=== PATIENT | male | born 1990 | race Two or more races ===

== ENCOUNTER 2023-09-08 20:10 | Emergency (ER) | payer OTHER ==
[~2023-09-08] VITALS: Ht 170.2 cm; Wt 69.9 kg
[2023-09-08] MEDS ORDERED: IBUPROFEN 400 MG TABLET PO ONE (23:00)
[2023-09-08] MEDS ORDERED: IBUPROFEN 400 MG TABLET ONE (23:04)
[2023-09-08] MEDS ORDERED: ACETAMINOPHEN ES 500 MG TABLET ONE (23:09)
[2023-09-08] MEDS ORDERED: ACETAMINOPHEN ES 500 MG TABLET PO ONE (23:30)
[2023-09-08] MEDS ORDERED: TYL2T PO (23:53)
[2023-09-08] MEDS ORDERED: IBUP-1957 PO (23:53)
[2023-09-09] VITALS: BP 139/90; TEMP 98.1; O2SAT 99
== END 2023-09-09 00:01 | disposition home or self-care (01) ==
LOC: ER 20:14
DX: S62.652A Nondisplaced fracture of middle phalanx of right middle finger, initial encounter for closed fracture (principal); W23.0XXA Caught, crushed, jammed, or pinched between moving objects, initial encounter; Y93.89 Activity, other specified; Y92.89 Other specified places as the place of occurrence of the external cause; Y99.8 Other external cause status
CPT/HCPCS: 73130-TC